=== PATIENT | female | born 1950 | race Caucasian/White ===

== ENCOUNTER → 2019-03-13 | Outpatient (CLI) | payer MEDICARE ==
--- NOTE | 2019-03-13 11:09 | REP ---
MRI brain: 03/13/2019. Indication: Mental status change. Stroke. Comparison: None. Technique: Multiplanar short and long TR sequences of the brain were obtained without IV Gadolinium. Findings: There are no areas of restricted diffusion to suggest an acute infarction. There is no intracranial mass effect or hydrocephalous. There is questionable abnormal signal within the medial aspect of the right transverse sinus which may represent a dural venous sinus thrombus. There is no evidence of intracranial hemorrhage. Foci of diminished signal on the gradient sequence within the basal ganglia are most consistent with mineralization. Impression: No acute intracranial process. Questionable right transverse dural venous sinus thrombus. If clinically indicated, CTV or MRV should be performed. Electronically Signed by Benny Castillo DO 03/13/2019 11:00 A
== END ==
LOC: M RAD 09:50
DX: G31.84 Mild cognitive impairment of uncertain or unknown etiology (principal)

== ENCOUNTER → 2019-04-09 | Outpatient (CLI) | payer MEDICARE ==
[~2019-04-09] MED LIST: PROHANCE 279.3MG/ML 5ML VIAL (A9576) As Ordered ONE
--- NOTE | 2019-04-14 09:40 | REP ---
Intracranial MRA: 04/09/2019. Indication: Memory loss. Headache. Technique: [id number] imaging of the intracranial venous anatomy/dural sinuses were obtained. 12 ml IV ProHance were administered. Findings: There is an area of diminished enhancement within the lateral aspect of the right transverse sinus. No additional abnormalities of the large intracranial veins or dural venous sinuses are present. 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 Electronically Signed by Benny Castillo DO 04/14/2019 09:32 A
== END ==
LOC: M RAD 14:38
PROVIDERS: ATTEND Hospitalist
DX: R93.0 Abnormal findings on diagnostic imaging of skull and head, not elsewhere classified (principal)
CPT/HCPCS: 70546; A9576

== ENCOUNTER → 2019-10-24 | Outpatient (CLI) | payer MEDICARE ==
[~2019-10-24] MED LIST changes: +DULO1CAP5 PO; +FLUTISP; +PROAAER10 INH; -PROHANCE 279.3MG/ML 5ML VIAL (A9576) As Ordered ONE; +PROL60SO; +REFR0.5D8 OP; +[UNRECOGNIZED DRUG - SUPPLY] OP
== END ==
LOC: M LABSMTC 09:30
PROVIDERS: ATTEND Anesthesiology
DX: Z03.818 Encounter for observation for suspected exposure to other biological agents ruled out (principal); Z11.59 Encounter for screening for other viral diseases
CPT/HCPCS: C9803; U0003

== ENCOUNTER 2019-10-27 06:42 | Day surgery (SDC) | payer MEDICARE ==
[~2019-10-27] VITALS: Ht 157.5 cm; Wt 49.4 kg
[2019-10-27] MEDS ORDERED: fentaNYL 250 MCG/5 ML INJECTION (J3010) As Ordered ONE (06:49)
[2019-10-27] MEDS ORDERED: MIDAZOLAM INJ 2MG/2ML VIAL (J2250 PER 1MG) As Ordered ONE (06:49)
[2019-10-27] MEDS ORDERED: POVIDONE-IODINE 5% OPHTH PREP SOL 30ML As Ordered ONE (06:49)
[2019-10-27] MEDS ORDERED: LIDOCAINE 1% SDV 5ML VIAL As Ordered ONE (06:50)
[2019-10-27] MEDS ORDERED: BALANCED SALT IRRIGATION SOLUTION 500ML BAG (FOR OR EYE MACHINE) As Ordered ONE (06:50)
[2019-10-27] MEDS ORDERED: HEALON DUET PRO(HEALON 10MG/ML 0.55ML & HEALON ENDOCOAT 30MG/ML 0.85ML) As Ordered ONE (06:50)
[2019-10-27] MEDS ORDERED: CYCLOPENTOLATE 2% OPHTH SOLN 2ML BTL OS ONE (07:00)
[2019-10-27] MEDS ORDERED: OFLOXACIN 0.3 % (OCUFLOX) OPTH SOL 5ML OS ONE (07:00)
[2019-10-27] MEDS ORDERED: LIDOCAINE 3.5 % 1ML OPHTH TOPICAL GEL OU ONE (07:00)
[2019-10-27] MEDS ORDERED: TROPICAMIDE 1% OPHTH SOLN 2ML OS ONE (07:00)
[2019-10-27] MEDS ORDERED: PHENYLEPHRINE 2.5% OPHTH SOL 2ML OS ONE (07:00)
[2019-10-27] MEDS ORDERED: PHENYLEPHRINE HCL 10 % OPHTH. SOL 5ML OS PRN (07:00)
[2019-10-27] MEDS ORDERED: TOBRAMYCIN 0.3% OPHTH SOLN 5 ML OS ONE (07:30)
[2019-10-27 08:15] VITALS: BP 111/67
--- NOTE | 2019-10-28 17:30 | RO ---
DATE OF PROCEDURE: 10/27/2019 PREPROCEDURE DIAGNOSIS: Age-related nuclear cataract left eye. POSTPROCEDURE DIAGNOSIS: Age-related nuclear cataract left eye. PROCEDURE: Phacoemulsification and posterior chamber intraocular lens implantation. The lens used was AU00T0, 26.5 diopters. SURGEON: Mariann Schrader MD WEEKEND RECEPTIONIST: ANESTHESIA: Topical with sedation. DESCRIPTION OF PROCEDURE: The patient was prepped and draped in the usual fashion. A lid speculum was placed between the lids. The eye was fixated. A stab incision was made to the anterior chamber, and 1% nonpreserved lidocaine was instilled. Then, viscoelastic was instilled. The eye was re-fixated. A 2.75 mm sapphire keratome was used to make a clear corneal temporal limbal incision. Capsulorrhexis was begun with a 30-gauge bent needle and then carried out in a circular fashion with capsulorrhexis forceps. The lens was hydrodissected, and then the phacoemulsification unit was used to make a groove in the nucleus in two meridians. The nucleus was then cracked into four quadrants. Each quadrant was removed with the phacoemulsification unit. Any remaining cortex was removed with the irrigation and aspiration (I and A) unit. Capsular bag was refilled with viscoelastic. A posterior chamber intraocular lens was placed in the capsular bag without difficulty. Any remaining viscoelastic was removed with the I and A unit. The wound was hydrated, and Miochol and cefuroxime were instilled into the anterior chamber. The patient tolerated the procedure well and went to the recovery room in stable condition.
== END 2019-10-27 08:21 | disposition home or self-care (01) ==
LOC: M SDC 06:42
PROVIDERS: ATTEND Ophthalmology
DX: H25.12 Age-related nuclear cataract, left eye (principal); J45.909 Unspecified asthma, uncomplicated; K21.9 Gastro-esophageal reflux disease without esophagitis; M79.7 Fibromyalgia; F03.90 Unspecified dementia, unspecified severity, without behavioral disturbance, psychotic disturbance, mood disturbance, and anxiety; F41.9 Anxiety disorder, unspecified; F32.9 Major depressive disorder, single episode, unspecified; Z79.899 Other long term (current) drug therapy; Z88.0 Allergy status to penicillin; Z88.1 Allergy status to other antibiotic agents; Z88.2 Allergy status to sulfonamides; Z88.8 Allergy status to other drugs, medicaments and biological substances
CPT/HCPCS: 66984; 92015; J2250; J3010; V2632

== ENCOUNTER 2019-12-22 10:00 | Day surgery (SDC) | payer MEDICARE ==
[2019-12-22] MEDS ORDERED: POVIDONE-IODINE 5% OPHTH PREP SOL 30ML ONE (10:10)
[2019-12-22] MEDS ORDERED: PHENYLEPHRINE 2.5% OPHTH SOL 2ML ONE (10:10)
[2019-12-22] MEDS ORDERED: HEALON DUET PRO(HEALON 10MG/ML 0.55ML & HEALON ENDOCOAT 30MG/ML 0.85ML) ONE (10:10)
[2019-12-22] MEDS ORDERED: TOBRAMYCIN 0.3% OPHTH SOLN 5 ML ONE (10:10)
[2019-12-22] MEDS ORDERED: CEFUROXIME 1MG/0.1ML INTRACAMERAL INJ ONE (10:10)
[2019-12-22] MEDS ORDERED: CYCLOPENTOLATE 2% OPHTH SOLN 2ML BTL ONE (10:10)
[2019-12-22] MEDS ORDERED: BALANCED SALT IRRIGATION SOLUTION 500ML BAG (FOR OR EYE MACHINE) ONE (10:10)
[2019-12-22] MEDS ORDERED: OFLOXACIN 0.3 % (OCUFLOX) OPTH SOL 5ML ONE (10:10)
[2019-12-22] MEDS ORDERED: LIDOCAINE 1% SDV 5ML VIAL ONE (10:10)
[2019-12-22] MEDS ORDERED: TROPICAMIDE 1% OPHTH SOLN 2ML ONE (10:10)
[2019-12-22] MEDS ORDERED: LIDOCAINE 3.5 % 1ML OPHTH TOPICAL GEL ONE (10:10)
[2019-12-22] MEDS ORDERED: fentaNYL 100 MCG/2 ML INJECTION (J3010) ONE (10:25)
[2019-12-22] MEDS ORDERED: MIDAZOLAM INJ 2MG/2ML VIAL (J2250 PER 1MG) ONE (10:25)
--- NOTE | 2020-02-19 10:58 | RO ---
DATE OF OPERATION: 12/22/2019 PREOPERATIVE DIAGNOSIS: Age-related nuclear cataract, right eye. POSTOPERATIVE DIAGNOSIS: Age-related nuclear cataract, right eye. PROCEDURE: Phacoemulsification posterior chamber intraocular lens implantation and Optiwave Refractive Analysis, right eye ANESTHESIA: Topical sedation. LENS USED: AU00T0 22.0 diopter. DETAILS OF PROCEDURE: The eye was prepped and draped in the usual fashion. Lid speculum was placed in the lid. A stab incision was made to the anterior chamber with a superblade. 1% non-preserved lidocaine was instilled and viscoelastic instilled. The eye was refixated, and a 2.4 mm Keratome made a clear corneal and temporal limbal incision. The lens was then hydrodissected, and then it was grooved in two meridians at the phacoemulsification. The lens was scrapped into four quadrants. Each quadrant was in good phacoemulsification. The remaining cortex was removed with I&A unit. The capsular bag was refilled with viscoelastic and the posterior chamber and intraocular lens were inserted into the capsular bag with no difficulty. Any remaining viscoelastic was removed with the I&A, and the wound was hydrated and balanced salt and ceftriaxone were instilled. The patient tolerated the procedure well, and went to the recovery room in stable condition. SANDRA
== END 2019-12-22 11:53 | disposition home or self-care (01) ==
LOC: M SDC 10:00
PROVIDERS: ATTEND Ophthalmology
DX: H25.11 Age-related nuclear cataract, right eye (principal); J45.909 Unspecified asthma, uncomplicated; K21.9 Gastro-esophageal reflux disease without esophagitis; M79.7 Fibromyalgia; F03.90 Unspecified dementia, unspecified severity, without behavioral disturbance, psychotic disturbance, mood disturbance, and anxiety; F41.9 Anxiety disorder, unspecified; F32.9 Major depressive disorder, single episode, unspecified; Z79.899 Other long term (current) drug therapy; Z88.1 Allergy status to other antibiotic agents; Z88.0 Allergy status to penicillin; Z88.2 Allergy status to sulfonamides; Z88.8 Allergy status to other drugs, medicaments and biological substances
CPT/HCPCS: 66984; J2250; J3010; V2632